=== PATIENT | male | born 1990 | race Caucasian/White ===

== ENCOUNTER 2016-10-21 23:56 | Inpatient (IN) | payer SELFPAY ==
[~2016-10-21] VITALS: Ht 170.2 cm; Wt 68.2 kg
[2016-10-22] VITALS (12 sets, daily range): BP systolic 81–122; BP diastolic 42–69
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
[2016-10-22] MEDS ORDERED: MVI, ADULT NO.4 WITH VIT K 10 ML, FOLIC ACID 1 MG, THIAMINE 100 MG in IV DEXTROSE 5%-LA... IV ONE ×4 (00:30)
[2016-10-22] MEDS ORDERED: IV DEXTROSE 5%-LACT RINGERS 1,000 ML ONE (00:43)
[2016-10-22] MEDS ORDERED: MVI, ADULT NO.4 WITH VIT K 10 ML VIAL IV ONE (00:44)
[2016-10-22] MEDS ORDERED: THIAMINE 200 MG/2 ML VIAL. IV ONE (00:44)
[2016-10-22] MEDS ORDERED: FOLIC ACID 5 MG/ML SYRINGE for ER IV ONE (00:44)
[2016-10-22 00:53] LABS: BASO # 0.1 x10^3/uL (0.0-0.2); BASO % 0 % (0-3); EOS % 0 % (0-3); HEMATOCRIT 42.1 % (39.0-53.0); HEMOGLOBIN 13.9 g/dL (13.0-17.5); LYMPH % 14 % (24-48); MEAN CORPUSCULAR HEMOGLOBIN 29 pg (25-35); MEAN CORPUSCULAR HGB CONC 33 g/dL (31-37); MEAN CORPUSCULAR VOLUME 88 fL (79-100); MONO # 1.6 x10^3/uL (0.0-1.1); MONO % 12 % (0-9); NEUT # 10.4 x10^3uL (1.8-7.7); NEUT % 74 % (31-73); PLATELET COUNT 325 x10^3/uL (140-400); RED BLOOD COUNT 4.81 x10^6/uL (4.30-5.70); RED CELL DISTRIBUTION WIDTH 13.9 % (11.5-14.5); WHITE BLOOD COUNT 14.1 x10^3/uL (4.0-11.0)
--- NOTE | 2016-10-22 01:02 | EKG ---
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
[2016-10-22 01:19] LABS: ALBUMIN 4.4 g/dL (3.4-5.0); CALCIUM 9.3 mg/dL (8.5-10.1); CREATININE 1.5 mg/dL (0.7-1.3); DIRECT BILIRUBIN 0.2 mg/dL (0.0-0.2); GFR 57.5; MAGNESIUM 2.1 mg/dL (1.8-2.4); POTASSIUM 4.4 mmol/L (3.5-5.1); TOTAL BILIRUBIN 0.5 mg/dL (0.2-1.0); TOTAL PROTEIN 7.2 g/dL (6.4-8.2)
[2016-10-22 01:52] LABS: SEDIMENTATION RATE 2 (0-15)
[2016-10-22 02:38] LABS: ACETAMIN < 2.0 mcg/mL (10-30); SALIC 3.2 mg/dL (2.8-20.0)
--- NOTE | 2016-10-22 03:33 | RAD ---
PROCEDURE CT head without contrast HISTORY Altered mental status TECHNIQUE Axial images are obtained of the head from the skull base through the vertex without IV contrast COMPARISON None. FINDINGS The ventricles are appropriate in size, shape, and location for the patient's age.No obvious intracranial mass, mass-effect, midline shift, hemorrhage or obvious acute infarction is identified.Basilar cisterns are patent. Bone windows demonstrate no acute calvarial abnormality.The visualized paranasal sinuses appear clear. IMPRESSION No acute intracranial process. Electronically signed by: Abiel Chand MD (Oct 22, 2016 03:32:12)
[2016-10-22] MEDS ORDERED: SODIUM BICARB ADULT 8.4% 50 MEQ/50 ML DISP.SYRIN. IV ONE (04:00)
[2016-10-22] MEDS ORDERED: LORAZEPAM 2 MG/ML VIAL IM ONE (04:00)
[2016-10-22] MEDS ORDERED: OLANZapine IM 10 MG VIAL. IM ONE (04:00)
[2016-10-22] MEDS ORDERED: DIPHENHYDRAMINE 50 MG/ML VIAL IM ONE (04:00)
[2016-10-22 04:01] LABS: BILIRUBIN,URINE NEG (NEG); CLARITY,URINE CLEAR; COLOR,URINE YELLOW; GLUCOSE,URINE NEG (NEG)
[2016-10-22 04:02] LABS: BACTERIA,URINE 0 /HPF (0-FEW); NITRITE,URINE NEG (NEG); RBC,URINE 0 /HPF (0-2); SPERM,URINE PRESENT /HPF; SQUAMOUS EPITHELIAL CELL,UR OCC /LPF; UROBILINOGEN,URINE 0.2 mg/dL (0.2 mg/dL); WBC,URINE RARE /HPF (0-4)
[2016-10-22 04:03] LABS: BARBITURATES NEG (NEG); BENZODIAZEPINES POS (NEG); CANNABINOIDS POS (NEG); COCAINE NEG (NEG); METHADONE NEG (NEG); OPIATES NEG (NEG); PHENCYCLIDINE NEG (NEG)
[2016-10-22 04:05] LABS: AMPHETAMINE/METHAMPHETAMINE POS (NEG)
[2016-10-22] MEDS ORDERED: IV RINGERS SOLUTION,LACTATED 1,000 ML IV ONE (04:30)
[2016-10-22] MEDS ORDERED: ONDANSETRON PF 4 MG/2 ML VIAL. IV PRN (04:30)
--- NOTE | 2016-10-22 04:43 | EKG ---
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
[2016-10-22] MEDS ORDERED: LORAZEPAM 2 MG/ML VIAL IV PRN ×2 (04:45)
[2016-10-22] MEDS ORDERED: HALOPERIDOL LACT 5 MG/ML VIAL. IVP PRN (04:45)
[2016-10-22] MEDS: DEXTROSE IV SCH ×3 (05:00→13:00)
[2016-10-22] MEDS: SODIUM BICARBONATE IVF IV SCH ×3 (05:00→13:00)
[2016-10-22] MEDS: NACL IV SCH ×3 (05:00→13:00)
[2016-10-22] MEDS ORDERED: DEXTROSE ONE (05:00)
[2016-10-22] MEDS ORDERED: NACL ONE (05:00)
--- NOTE | 2016-10-22 05:09 | ACF ---
Admission Criteria Forms [facility] Clinical Indications for Admission to Inpatient Care (Place 'X' for any and all applicable criteria): Hospital admission is needed for appropriate care of the patient because of ANY ONE of the following[A] (3)(4)(5): [ ]I. Inpatient behavioral care is needed as indicated by ALL of the following: [ ]a) Treatment is needed because of patient risk due to ANY ONE of the following: [ ]i) Imminent danger to self due to ANY ONE of the following ( 7)(8): [ ]1) Imminent risk for recurrence of a suicide attempt or act of serious self-harm as indicated by ALL of the following: [ ]A. Very recent suicide attempt or deliberate act of serious self-harm [ ]B. Absence of sufficient relief of the action' s precipitants [ ]2) Current plan for suicide or serious self-harm [ ]3) Persistent thoughts of suicide or serious self- harm that cannot be adequately monitored at a lower level of care because of ANY ONE of the following: [ ]A. Insufficient behavioral care provider availability [ ]B. Inadequate patient support system [ ]C. Patient characteristics such as high impulsivity or unreliability [ ]D. Ruminative flooding; uncontrollable and overwhelming profusion of negative thoughts [ ]E. Frantic hopelessness; fatalistic conviction that life will not improve along with oppressive sense of entrapment and doom [ ]F. Active substance use disorder is present [ ]G. Ready access to lethal means is present [ ]ii) Imminent danger to others due to ANY ONE of the following( 10)(11): [ ]1) Imminent risk for recurrence of an attempt to seriously harm another as indicated by ALL of the following: [ ]A. Very recent attempt to seriously harm another [ ]B. Absence of sufficient relief of the action' s precipitants [ ]2) Current plan for homicide or seriously harming another [ ]3) Command auditory hallucination for serious self harm to self or others [ ]4) Persistent thoughts of homicide or seriously harming another that cannot be adequately monitored at a lower level of care because of ANY ONE of the following: [ ]A. Insufficient behavioral care provider availability [ ]B. Inadequate patient support system [ ]C. Patient characteristics such as high impulsivity or unreliability [ ]D. Active substance use disorder is present [ ]E. Ready access to lethal means is present [ ]iii) Behavioral health disorder is present with ALL of the following: (12)(16)(17)(18): [ ]1) Severe psychiatric or behavioral symptoms are present , including ANY ONE of the following: [ ]A. Hallucinations that are very bothersome to patient or are associated with severe pressure to respond to voices(17)(18) [ ]B. Delusions that are very bothersome to patient or are associated with severe pressure to act on beliefs(17)(18) [ ]C. Disorganized speech that is almost impossible to follow(17)(18) [ ]D. Motor behavior that is almost constantly abnormal or bizarre or catatonic(17)(18) [ ]E. Severe negative symptoms (eg, severe decrease in facial expression or self-initiated behavior)(17)(18) [ ]F. Severe amy (eg, daily periods of extensive mood elevation or irritability)(19)(20)(21)(22) [ ]G. Severe depression (eg, daily symptoms of deep hopelessness)[C] [ ]H. Severe anxiety[D] [ ]I. Severe comorbid substance use disorder with inability to control use, intense withdrawal symptoms, or extreme negative impact on primary psychiatric disorder(2)(7)(25) [ ]J. Severe impairment in cognition, memory, judgment, or impulse control(26)(27) [ ]K. Severe impairment in behavior, including physical or verbal aggression, disruptive behaviors, or internal or external anger manifestations (eg, rumination or outbursts)(28) [ ]L. Other psychiatric symptoms which are acute or represent worsening over baseline (eg, hyperactivity, agitation, obsessions, or compulsions)(29)(30)(31) [ ]2) Severe dysfunction in daily living is present as indicated by ANY ONE of the following: [ ]A. Extreme deterioration in social interactions ( eg, threatening behaviors with little or no provocation) [ ]B. Complete withdrawal from all social interactions [ ]C. Complete neglect of self-care with associated impairment in physical status [ ]D. Extreme disruption in vegetative function (eg , life-sustaining functions such as eating) [ ]E. Complete inability to maintain any appropriate aspect of personal responsibility in any adult roles (eg, occupational, parental) [ ]b) Treatment situation and needs are appropriate for level as indicated by ANY ONE of the following(13)(16): [ ]i) Patient unwilling to participate voluntarily and requires treatment (eg, legal commitment) in an involuntary unit [ ]ii) Voluntary treatment at lower level not feasible (e.g., very short-term crisis intervention or residential care unavailable or unacceptable for patient condition) [ ]iii) Need for physical restraint, seclusion, or other involuntary control (e.g., actively violent patient and adequate clinical rapport cannot be established to control violence) (25) [ ]iv) [id number]-[id number] medical or nursing care to address symptoms and initiate intervention is required; specific need has been identified [ ]II. Delirium as described by ANY ONE of the following (26)(27)(28): [ ]a) Delirium due to alcohol or sedative [B] withdrawal (16)(29)(30)( 31) [ ]b) Delirium of uncertain etiology that has not responded to appropriate treatment in emergency department or urgent care setting (32)(33) [ ]c) Delirium that prevents performance of a life-sustaining function (eg, feeding or hydrating oneself) (9) [ ]III. Administration of a somatic treatment that requires [id number] medical or nursing care because of a potential adverse physical effect or medical comorbidity(7) [X]IV. Behavioral Health condition, symptom, or finding for which emergency and observation care have failed or are not considered appropriate The original [facility] AUT[employer] content created by [email or web address] has been revised. The portions of the content which have been revised are identified through the use of italic text or in bold, and [facility] has neither reviewed nor approved the modified material. All other unmodified content is copyright [facility]. Please see references footnoted in the original [facility] edition 2015 Admission Criteria Met?: Yes HILDA ELLIS Oct 22, 2016 05:09
--- NOTE | 2016-10-22 07:15 | RAD ---
Portable chest, 10/22/2016: History: Cough, altered mental status The heart size and pulmonary vascularity are normal. No pulmonary infiltrates are seen. There is no evidence of pleural fluid. IMPRESSION: No acute cardiopulmonary abnormality is detected.
[2016-10-22] MEDS: MVI, ADULT NO.4 WITH VIT K 10 ML, FOLIC ACID 1 MG, THIAMINE 100 MG in IV DEXTROSE 5 %-0... IV SCH ×4 (09:10)
[2016-10-22] MEDS: CEFTRIAXONE SODIUM 1 GM in IV NORMAL SALINE 50ML 50 ML IV SCH (09:10)
[2016-10-22 12:33] LABS: GFR 91.8; POTASSIUM 3.6 mmol/L (3.5-5.1)
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
[2016-10-22] MEDS: ARIPIPRAZOLE 5 MG TABLET PO SCH (14:07)
[2016-10-22] MEDS: IV NORMAL SALINE 1,000ML 1,000 ML IV SCH ×2 (17:15→22:32)
[2016-10-22 19:06] LABS: CALCIUM 8.1 mg/dL (8.5-10.1); CREATININE 0.9 mg/dL (0.7-1.3); GFR 103.7; POTASSIUM 3.2 mmol/L (3.5-5.1)
[2016-10-22] MEDS ORDERED: POTASSIUM CHLORIDE 20 MEQ TABLET.ER. PO ONE (20:15)
[2016-10-22] MEDS ORDERED: LIDOCAINE 2% TOPICAL JELLY 30GM TUBE. TP ONE (20:45)
--- NOTE | 2016-10-22 20:59 | PDOC ---
Exam Jose Demential Exam: Jose Note: Please also refer to the separate dictated note~for this date of service dictated separately.~Patient seen individually. Discussed the patient with Nursing staff reviewed the chart.~Reviewed interim history and current functioning. Reviewed vital signs,~Labs/ Radiology~and current medications noted below. Continue current treatment with the changes noted in the dictated addendum note Assessment: Vital Signs: Vital Signs Date Time Temp Pulse Resp B/P Pulse Ox O2 Delivery O2 Flow Rate FiO2 10/22/16 19:56 98.0 77 14 107/62 93 Room Air I&O Intake and Output 10/22/16 07:00 Intake Total 1332 ml Balance 1332 ml Intake Oral 0 ml IV Total 1332 ml Labs: Laboratory Tests Test 10/22/16 00:30 10/22/16 03:30 10/22/16 05:50 10/22/16 12:16 White Blood Count 14.1x10^3/uL (4.0-11.0) H Red Blood Count 4.81x10^6/uL (4.30-5.70) Hemoglobin 13.9g/dL (13.0-17.5) Hematocrit 42.1% (39.0-53.0) Mean Corpuscular Volume 88fL (79-100) Mean Corpuscular Hemoglobin 29pg (25-35) Mean Corpuscular Hemoglobin Concent 33g/dL (31-37) Red Cell Distribution Width 13.9% (11.5-14.5) Platelet Count 325x10^3/uL (140-400) Neutrophils (%) (Auto) 74% (31-73) H Lymphocytes (%) (Auto) 14% (24-48) L Monocytes (%) (Auto) 12% (0-9) H Eosinophils (%) (Auto) 0% (0-3) Basophils (%) (Auto) 0% (0-3) Neutrophils # (Auto) 10.4x10^3uL (1.8-7.7) H Lymphocytes # (Auto) 2.0x10^3/uL (1.0-4.8) Monocytes # (Auto) 1.6x10^3/uL (0.0-1.1) H Eosinophils # (Auto) 0.0x10^3/uL (0.0-0.7) Basophils # (Auto) 0.1x10^3/uL (0.0-0.2) Erythrocyte Sedimentation Rate 2 (0-15) Prothrombin Time 11.0SEC (9.4-11.4) Prothrombin Time INR 1.1 (0.9-1.1) PTT 27SEC (23-33) Sodium Level 144mmol/L (136-145) 145mmol/L (136-145) Potassium Level 4.4mmol/L (3.5-5.1) 3.6mmol/L (3.5-5.1) Chloride Level 105mmol/L (98-107) 108mmol/L (98-107) H Carbon Dioxide Level 31mmol/L (21-32) 29mmol/L (21-32) Anion Gap 8 (6-14) 8 (6-14) Blood Urea Nitrogen 18mg/dL (8-26) 11mg/dL (8-26) Creatinine 1.5mg/dL (0.7-1.3) H 1.0mg/dL (0.7-1.3) Estimated GFR (Cockcroft-Gault) 57.5 91.8 Glucose Level 95mg/dL (70-99) 70mg/dL (70-99) Calcium Level 9.3mg/dL (8.5-10.1) 8.0mg/dL (8.5-10.1) #L Magnesium Level 2.1mg/dL (1.8-2.4) Total Bilirubin 0.5mg/dL (0.2-1.0) Direct Bilirubin 0.2mg/dL (0.0-0.2) Aspartate Amino Transferase (AST) 59U/L (15-37) H Alanine Aminotransferase (ALT) 40U/L (16-63) Alkaline Phosphatase 78U/L (46-116) Creatine Kinase 2680U/L (39-308) H 2583U/L (39-308) H 1883U/L (39-308) H Creatine Kinase MB (Mass) 16.1ng/mL (0.0-3.6) H Creatine Kinase MB Relative Index 0.6% (0-4) Troponin I Quantitative < 0.017ng/mL (0-0.055) Total Protein 7.2g/dL (6.4-8.2) Albumin 4.4g/dL (3.4-5.0) Thyroid Stimulating Hormone (TSH) 1.031uIU/mL (0.358-3.740) Salicylates Level 3.2mg/dL (2.8-20.0) Salicylate Last Dose Date Unknown Salicylate Last Dose Time Unknown Acetaminophen Level < 2.0mcg/mL (10-30) L Acetaminophen Last Dose Date Unknown Acetaminophen Last Dose Time Unknown Ethyl Alcohol Level < 10mg/dL (0-10) Urine Collection Type Unknown Urine Color Yellow Urine Clarity Clear Urine pH 6.5 Urine Specific [place] 1.020 Urine Protein 30 mg/dl (NEG-TRACE) Urine Glucose (UA) Negmg/dL (NEG) Urine Ketones (Stick) 15mg/dL (NEG) Urine Blood Neg (NEG) Urine Nitrite Neg (NEG) Urine Bilirubin Neg (NEG) Urine Urobilinogen Dipstick 0.2mg/dL (0.2 mg/dL) Urine Leukocyte Esterase Neg (NEG) Urine RBC 0/HPF (0-2) Urine WBC Rare/HPF (0-4) Urine Squamous Epithelial Cells Occ/LPF Urine Bacteria 0/HPF (0-FEW) Urine Mucus Slight/LPF Urine Sperm Present/HPF Urine Opiates Screen Neg (NEG) Urine Methadone Screen Neg (NEG) Urine Barbiturates Neg (NEG) Urine Phencyclidine Screen Neg (NEG) Urine Amphetamine/Methamphetamine Pos (NEG) Urine Benzodiazepines Screen Pos (NEG) Urine Cocaine Screen Neg (NEG) Urine Cannabinoids Screen Pos (NEG) Urine Ethyl Alcohol Neg (NEG) Test 10/22/16 18:20 Sodium Level 146mmol/L (136-145) H Potassium Level 3.2mmol/L (3.5-5.1) L Chloride Level 108mmol/L (98-107) H Carbon Dioxide Level 31mmol/L (21-32) Anion Gap 7 (6-14) Blood Urea Nitrogen 7mg/dL (8-26) L Creatinine 0.9mg/dL (0.7-1.3) Estimated GFR (Cockcroft-Gault) 103.7 Glucose Level 91mg/dL (70-99) Calcium Level 8.1mg/dL (8.5-10.1) L Creatine Kinase 1718U/L (39-308) H Current Medications: Meds: Current Medications Multivitamins/ Minerals 10 ml/ Folic Acid 1 mg/ Thiamine HCl 100 mg/Dextrose/ Lactated Ringer's 1,011.2 ml @ 1,000 mls/ hr 1X ONCE IV Last administered on 10/22/16 00:30; Start 10/22/16 at 00:30; Stop 10/22/16 at 03:51; Status DC Dextrose/Lactated Ringer's (Iv D5%-Lr) 1,000 ml @ As Directed STK-MED ONCE .ROUTE ; Start 10/22/16 at 00:43; Stop 10/22/16 at 00:44; Status DC Folic Acid 5 mg STK-MED ONCE IV ; Start 10/22/16 at 00:44; Stop 10/22/16 at 00:45 ; Status DC Thiamine HCl 200 mg STK-MED ONCE IV ; Start 10/22/16 at 00:44; Stop 10/22/16 at 00 :45; Status DC Multivitamins/ Minerals (Infuvite Adult) 10 ml STK-MED ONCE IV ; Start 10/22/16 at 00:44; Stop 10/22/16 at 00:45; Status DC Diphenhydramine HCl (Benadryl) 50 mg 1X ONCE IM Last administered on 10/22/16 04:00; Start 10/22/16 at 04:00; Stop 10/22/16 at 04:01; Status DC Lorazepam (Ativan) 2 mg 1X ONCE IM Last administered on 10/22/16 04:00; Start 10/22/16 at 04:00; Stop 10/22/16 at 04:01; Status DC Olanzapine (Zyprexa Im) 10 mg 1X ONCE IM Last administered on 10/22/16 04:00; Start 10/22/16 at 04:00; Stop 10/22/16 at 04:01; Status DC Aripiprazole (Abilify) 5 mg DAILY PO ; Start 10/22/16 at 09:00 Sodium Bicarbonate 50 meq 50 meq 1X ONCE IV ; Start 10/22/16 at 04:00; Stop 10/22 at 04:01; Status DC Sodium Bicarbonate 50 meq/Dextrose/ Sodium Chloride 1,050 ml @ 160 mls/hr Q6H34M IV Last administered on 10/22/16 13:00; Start 10/22/16 at 04:00; Stop 10/22/16 at 16:37; Status DC Lactated Ringer's (Iv Lactated Ringers) 1,000 ml @ 1,000 mls/hr 1X ONCE IV ; Start 10/22/16 at 04:30; Stop 10/22/16 at 05:30; Status DC Ondansetron HCl 4 mg 4 mg PRN Q4HRS PRN IV NAUSEA/VOMITING; Start 10/22/16 at 04 :30; Stop 10/23/16 at 04:29 Multivitamins/ Minerals/Folic Acid/Thiamine HCl/ Dextrose/Sodium Chloride ( Infuvite Adult/ Iv D5% - 1/2 NS) 1,011.2 ml @ 100.009 mls/hr DAILY IV Last administered on 10/22/16 09:10; Start 10/22/16 at 09:00 Haloperidol Lactate (Haldol) 2.5 mg QIDPRN PRN IVP PSYCHOTIC AGITATION; Start 10/22/16 at 04:45 Aripiprazole (Abilify) 2.5 mg HS PO ; Start 10/22/16 at 21:00 Lorazepam (Ativan) 1 mg QIDPRN PRN IV AGITATIION; Start 10/22/16 at 04:45 Lorazepam 2 mg 2 mg PRN 1X PRN IV SEIZURE, OR SEVER AGITATION; Start 10/22/16 at 04:45 Ceftriaxone Sodium/Sodium Chloride (Rocephin/Iv Sodium Chloride 0.9% 50ml) 50 ml @ 100 mls/hr DAILY IV Last administered on 10/22/16 09:10; Start 10/22/16 at 09:00 Diphenhydramine HCl (Benadryl) 50 mg HS PO ; Start 10/22/16 at 21:00 Dextrose/Sodium Chloride 1000 ml 1,000 ml STK-MED ONCE .ROUTE ; Start 10/22/16 at 05:00; Stop 10/22/16 at 14:34; Status DC Sodium Chloride (Iv Sodium Chloride 0.9% 1,000ml) 1,000 ml @ 150 mls/hr Q6H40M IV Last administered on 10/22/16 17:15; Start 10/22/16 at 17:00 Potassium Chloride (Klor-Con) 40 meq 1X ONCE PO ; Start 10/22/16 at 20:15; Stop 10/22/16 at 20:16; Status DC Potassium Chloride (Klor-Con) 40 meq DAILYWBKFT PO ; Start 10/23/16 at 08:00 Lidocaine HCl (Xylocaine 2% Topical 30gm Tube) 1 marianne 1X ONCE TP ; Start at 20:45; Stop 10/22/16 at 20:46; Status DC Active Scripts Active Reported No Known Medications Prior To Admisstion (Info) Each 1 Each Diagnosis: Problems: (1) Psychosis ANURADHA TAYLOR MD Oct 22, 2016 20:59
[2016-10-22] MEDS ORDERED: DIPHENHYDRAMINE HCL 25 MG CAPSULE PO SCH (21:00)
[2016-10-22] MEDS ORDERED: ARIPIPRAZOLE 5 MG TABLET PO SCH (21:00)
[2016-10-23 00:35] VITALS: BP_SYST 104; BP_SYST 166; BP_DIAS 50; BP_DIAS 83
[2016-10-23 02:35] VITALS: BP 93/46
[2016-10-23 03:30] VITALS: BP 110/68
[2016-10-23] MEDS: IV NORMAL SALINE 1,000ML 1,000 ML IV SCH (05:24)
[2016-10-23 05:37] VITALS: BP 116/54
[2016-10-23 06:00] LABS: BASO % 1 % (0-3); EOS # 0.1 x10^3/uL (0.0-0.7); EOS % 2 % (0-3); HEMATOCRIT 36.4 % (39.0-53.0); HEMOGLOBIN 11.9 g/dL (13.0-17.5); LYMPH # 2.8 x10^3/uL (1.0-4.8); LYMPH % 41 % (24-48); MEAN CORPUSCULAR HEMOGLOBIN 29 pg (25-35); MEAN CORPUSCULAR HGB CONC 33 g/dL (31-37); MEAN CORPUSCULAR VOLUME 89 fL (79-100); MONO # 0.7 x10^3/uL (0.0-1.1); MONO % 10 % (0-9); NEUT # 3.2 x10^3uL (1.8-7.7); NEUT % 46 % (31-73); PLATELET COUNT 273 x10^3/uL (140-400); RED BLOOD COUNT 4.09 x10^6/uL (4.30-5.70); RED CELL DISTRIBUTION WIDTH 13.8 % (11.5-14.5); WHITE BLOOD COUNT 6.9 x10^3/uL (4.0-11.0)
[2016-10-23 06:18] LABS: ALBUMIN 2.8 g/dL (3.4-5.0); ALBUMIN/GLOBULIN RATIO 1.1 (1.0-1.7); CALCIUM 7.9 mg/dL (8.5-10.1); CREATININE 0.9 mg/dL (0.7-1.3); GFR 103.7; MAGNESIUM 1.9 mg/dL (1.8-2.4); POTASSIUM 4.1 mmol/L (3.5-5.1); TOTAL BILIRUBIN 0.1 mg/dL (0.2-1.0); TOTAL PROTEIN 5.3 g/dL (6.4-8.2)
[2016-10-23 07:24] VITALS: BP 107/61
[2016-10-23] MEDS: ARIPIPRAZOLE 5 MG TABLET PO SCH (07:46)
[2016-10-23] MEDS: CEFTRIAXONE SODIUM 1 GM in IV NORMAL SALINE 50ML 50 ML IV SCH (07:47)
[2016-10-23] MEDS ORDERED: POTASSIUM CHLORIDE 20 MEQ TABLET.ER. PO SCH (08:00)
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
[2016-10-23] MEDS: MVI, ADULT NO.4 WITH VIT K 10 ML, FOLIC ACID 1 MG, THIAMINE 100 MG in IV DEXTROSE 5 %-0... IV SCH ×4 (09:03)
[2016-10-23 10:49] LABS: RPR REFLEX Non Reactive (Non Reactive)
--- NOTE | 2016-10-23 19:11 | DS ---
DATE OF DISCHARGE: 10/23/2016 DISCHARGE DIAGNOSES: 1. Polysubstance abuse with methamphetamine intoxication. 2. Psychosis. 3. Schizophrenia. 4. Depression. 5. Poor social situation. 6. Hypotension, resolved. 7. Acute kidney injury from drug use. 8. Rhabdomyolysis. 9. Urinary retention, which was resolved on its own. HOSPITAL COURSE: This is a 26-year-old male who had been arrested and spent the night in prison because of his unpaid speeding ticket. He admits to continuous methamphetamine use and was brought to the Emergency Room confused, agitated and paranoid. He had to be sedated with some IM Zyprexa and lorazepam. His drug screen was positive for methamphetamine and cannabinoids, also benzodiazepines, that was previous to the sedation in the ER. He did become quite over-sedated from the Zyprexa and slept almost 16 hours. He was adequately hydrated and was on one-on-one. His CPK was trending down at the time of discharge and his creatinine came down to 0.9. He was seen by the [facility], who recommended inpatient treatment, which he refused. They did recommend that he come directly over to the [facility] by taxi on discharge, which we are assuming that he did. PHYSICAL EXAMINATION: VITAL SIGNS: On the day of discharge, his blood pressure was 116/54, pulse 105, respirations 20, pulse came down to 71, pulse ox 100% on room air. GENERAL: He is alert, responding appropriately. His mental state is paranoid and somewhat psychotic in his ideation. His thought processes are not clear. He was calm and cooperative, however. HEENT: His tongue was moist. NECK: Supple. LUNGS: Clear. CARDIOVASCULAR: Regular rhythm and rate. ABDOMEN: Soft and nontender. EXTREMITIES: Without edema. DISPOSITION: To the [facility] for further therapy. CAT ELIZABETH DO DR: DELANEY/julio césar JOB#: [id number] / [id number]
== END 2016-10-23 11:18 | disposition home or self-care (01) | DRG 682 ==
LOC: ER 23:56 → ICU 10-22 04:33
PROVIDERS: ADMIT Family Medicine; ATTEND Family Medicine
DX: N17.0 Acute kidney failure with tubular necrosis (principal); G92 Toxic encephalopathy; M62.82 Rhabdomyolysis; F20.9 Schizophrenia, unspecified; F31.9 Bipolar disorder, unspecified; F41.9 Anxiety disorder, unspecified; I95.9 Hypotension, unspecified; R33.9 Retention of urine, unspecified; Z87.891 Personal history of nicotine dependence; Y92.89 Other specified places as the place of occurrence of the external cause; F15.129 Other stimulant abuse with intoxication, unspecified; T43.625A Adverse effect of amphetamines, initial encounter
CPT/HCPCS: 36415; 51702; 70450; 71010; 80048; 80053; 80076; 81001; 82550; 82553; 83735; 83874; 84443; 84484; 85027; 85610; 85651; 85730; 86592; 86593; 87040; 87641; 93005; 96365; 96372; 99292; G0480; G0481; G6038; J0696; J1200; J2060; J3490; Q0163; 80196; 99291-25; J7030